=== PATIENT | male | born 1955 | race Caucasian/White ===

== ENCOUNTER → 2016-11-28 | Day surgery (SDC) | payer OTHER ==
[~2016-11-28] MED LIST: IV RINGERS,LACTATED 1000ML 1,000 ML IV SCH; LIDOCAINE 1% 1 ML SYRINGE. ID PRN; LIDOCAINE 2% PF Vial for OR 5 ML VIAL. ONE; MIDAZOLAM HCL/PF 2 MG/2 ML VIAL. IV PRN; PROPOFOL 20 ML IV ONE; fentaNYL PF VIAL 100 MCG/2 ML VIAL IV PRN
[2016-11-28 10:35] VITALS: BP 124/62
== END | disposition home or self-care (01) ==
LOC: SURG 08:02
PROVIDERS: ATTEND Internal Medicine Gastroenterology
DX: Z12.11 Encounter for screening for malignant neoplasm of colon (principal); K64.0 First degree hemorrhoids; F17.200 Nicotine dependence, unspecified, uncomplicated; Z80.3 Family history of malignant neoplasm of breast; Z80.41 Family history of malignant neoplasm of ovary; Z72.89 Other problems related to lifestyle
CPT/HCPCS: 45378; J2704; J2001